=== PATIENT | male | born 1990 | race Caucasian/White ===

== ENCOUNTER 2021-02-25 16:10 | Emergency (ER) | payer SELFPAY ==
[~2021-02-25] VITALS: Ht 165.1 cm; Wt 66.0 kg
[2021-02-25] MEDS ORDERED: PANTOPRAZOLE 40MG DR TABLET PO ONE (17:30)
[2021-02-25 17:39] LABS: CHLORIDE 104 mEq/L (98-107)
[2021-02-25 17:43] LABS: PARTIAL THROMBOPLASTIN TIME 34.1 sec (23.4-31.0); PROTHROMBIN TIME 10.6 sec (9.6-11.0)
[2021-02-25 20:24] LABS: BASOPHILS % 0.7 % (0.0-2.0); EOSINOPHILS % 3.6 % (0.0-5.0); HEMATOCRIT. 42.1 % (42.0-52.0); LYMPHOCYTES % 26.6 % (20.0-50.0); MEAN CORPUSCULAR HEMOGLOBIN 29.2 pg (28.0-32.0); MEAN CORPUSCULAR VOLUME 87.9 fL (80.0-94.0); MEAN PLATELET VOLUME 6.9 fl (7.4-10.4); MONOCYTES % 11.2 % (2.0-8.0); NEUTROPHILS % 57.9 % (40.0-76.0); PLATELET 372 x1000/uL (130-400); RED BLOOD CELL COUNT 4.79 mill/uL (4.7-6.1); RED CELL DISTRIBUTION WIDTH 14.3 % (11.6-14.6)
[2021-02-25 21:43] VITALS: BP 120/71
== END 2021-02-25 22:37 | disposition home or self-care (01) ==
LOC: ER 16:10
DX: R11.10 Vomiting, unspecified (principal); F10.10 Alcohol abuse, uncomplicated; F32.9 Major depressive disorder, single episode, unspecified; F17.290 Nicotine dependence, other tobacco product, uncomplicated; F12.10 Cannabis abuse, uncomplicated; Z20.822 Contact with and (suspected) exposure to COVID-19
CPT/HCPCS: 36415; 80053; 85025; 86850; 86900; 87426; 99283

== ENCOUNTER 2021-03-13 04:27 | Emergency (ER) | payer SELFPAY ==
[~2021-03-13] VITALS: Ht 170.2 cm; Wt 77.0 kg
[2021-03-13] MEDS ORDERED: ACETAMINOPHEN 325MG TABLET PO STA (04:50)
[2021-03-13] MEDS ORDERED: CEPH500T PO (05:53)
[2021-03-13] MEDS ORDERED: CIPR1DRO2 LEFT EAR (05:53)
[2021-03-13] MEDS ORDERED: ACET-2708 PO (05:53)
[2021-03-13 06:06] VITALS: BP 121/69
== END 2021-03-13 06:18 | disposition home or self-care (01) ==
LOC: ER 04:27
DX: H60.502 Unspecified acute noninfective otitis externa, left ear (principal)
CPT/HCPCS: 99283